=== PATIENT | female | born 1985 | race Hispanic/Latino ===

== ENCOUNTER → 2024-12-02 | Outpatient (CLI) | payer OTHER ==
--- NOTE | 2024-12-02 11:20 | HMCIMG ---
US ABDOMINAL COMPLETE HISTORY: Right lower abdominal pain COMPARISON: None TECHNIQUE: Multiple transverse and longitudinal ultrasound images of the abdomen were obtained. FINDINGS: Abdominal aorta and inferior vena cava are unremarkable. The visualized portion of the pancreas is within normal limits. Liver measures 22 cm. Liver is echogenic consistent with liver parenchymal disease. No gallstone is seen. Common duct measures 5 mm. No evidence of gallbladder wall thickening is seen. Both kidneys are seen. Right kidney measures 11.9 x 5 x 4.4 cm. Left kidney measures 11.2 x 5.2 x 4.6 cm. No hydronephrosis is seen of the both kidneys. The spleen is grossly unremarkable. IMPRESSION: 1. No gallstone or ductal dilatation is seen. 2. No hydronephrosis is seen.
--- NOTE | 2024-12-02 11:22 | HMCIMG ---
US PELVIC NON-OB COMP HISTORY: Right lower abdominal pain COMPARISON: None TECHNIQUE: Transabdominal pelvic ultrasound study was performed. FINDINGS: The uterus measures 7.3 x 2 x 4.3 cm. The right ovary measures 2.4 x 3.1 x 2.2 cm. The left ovary measures 2.7 x 2.2 x 1.8 cm. Flow is seen in both ovaries. Endometrial thickness is 11 mm No free fluid is seen in the cul-de-sac. IMPRESSION: 1. No adnexal mass is seen.
== END | disposition home or self-care (01) ==
LOC: RAH 10:22
PROVIDERS: ATTEND Internal Medicine
DX: R10.31 Right lower quadrant pain (principal)
CPT/HCPCS: 76700; 76856